=== PATIENT | male | born 1965 | race Caucasian/White ===

== ENCOUNTER 2017-05-17 07:40 | Emergency (ER) | payer OTHER ==
[2017-05-17] MEDS ORDERED: KETOROLAC 30 MG/ML 1 ML VIAL IM STA (07:57)
[2017-05-17] MEDS ORDERED: DIPH,PERTUS(ACELL)TETVAC-LF 0.5 ML VIAL IM ONE (07:59)
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
[2017-05-17 08:32] VITALS: BP 128/90; PULSE 90; RESP 18; TEMP 98
== END 2017-05-17 08:35 | disposition home or self-care (01) ==
LOC: EC 07:40
DX: T24.301A Burn of third degree of unspecified site of right lower limb, except ankle and foot, initial encounter (principal); F17.200 Nicotine dependence, unspecified, uncomplicated; Z23 Encounter for immunization; Z91.09 Other allergy status, other than to drugs and biological substances; W29.2XXA Contact with other powered household machinery, initial encounter
CPT/HCPCS: 90471; 90715; 96372; 99283

== ENCOUNTER 2017-06-26 13:50 | Emergency (ER) | payer OTHER ==
[2017-06-26 13:56] VITALS: BP 133/78; PULSE 88; RESP 20; TEMP 98.1
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
== END 2017-06-26 15:36 | disposition home or self-care (01) ==
LOC: EC 13:50
DX: Z76.0 Encounter for issue of repeat prescription (principal); F17.200 Nicotine dependence, unspecified, uncomplicated; Z91.048 Other nonmedicinal substance allergy status; Z98.890 Other specified postprocedural states; Z79.899 Other long term (current) drug therapy
CPT/HCPCS: 99281

== ENCOUNTER 2017-12-14 17:33 | Emergency (ER) | payer OTHER ==
[2017-12-14 17:50] VITALS: RESP 18; TEMP 98.2
--- NOTE | 2017-12-14 19:45 | ED ---
Psych HPI - General Source: patient Mode of arrival: ambulatory <[place] - Last Filed: 12/14/17 19:42> <Seng Ghotra - Last Filed: 12/15/17 06:47> - General Chief Complaint: Psychiatric Symptoms Stated Complaint: Mental Health Unit Time Seen by Provider: 12/14/17 18:18 - History of Present Illness Initial Comments: 52 years old gentleman has a history of depression was on some depression medication he had some side effects from depression medications and he stopped taking him he felt depression medications were making her feel like his throat and around. He been depressed he thought about self-harm he said he is a Hoahaoism and he do not want to go to [facility] [place] by committing suicide. He has a terms of stressors he do not have a job he is unable to pay his child support is unable to pay his bills in all this stressors and aggravating his depression he drinks daily he said he was not quite [place], and she drinks area denies any medical complaints ([place]) - Related Data Home Medications Medication Instructions Recorded Confirmed oxyCODONE HCL/ACETAMINOPHEN 1 tab PO Q6HR PRN 06/26/17 12/14/17 [Percocet 10-325 mg] Allergies Allergy/AdvReac Type Severity Reaction Status Date / Time dog dander Allergy Intermediate Unknown Verified 12/14/17 18:18 Review of Systems ROS Other: All systems not noted in ROS Statement are negative. <[place] - Last Filed: 12/14/17 19:42> ROS Other: All systems not noted in ROS Statement are negative. <Seng Ghotra - Last Filed: 12/15/17 06:47> ROS Statement: Those systems with pertinent positive or pertinent negative responses have been documented in the HPI. Past Medical History Past Medical History: COPD, Hyperlipidemia, Hypertension, Osteoarthritis (OA) Additional Past Medical History / Comment(s): cellulitis - Rt knee, recent chest pain. By left heart catheterization that was negative for coronary artery disease, abdominal pain possible gastritis possible pancreatitis, chronic alcohol use and dependence, chronic tobacco use and dependence, COPD, History of Any Multi-Drug Resistant Organisms: None Reported Past Surgical History: Orthopedic Surgery Additional Past Surgical History / Comment(s): re-attach thumb, right knee incision and drainage of a staph infection. Past Anesthesia/Blood Transfusion Reactions: No Reported Reaction Past Psychological History: Depression Smoking Status: Current every day smoker Past Alcohol Use History: Daily, Heavy Past Drug Use History: None Reported - Past Family History Mother Family Medical History: Rheumatoid Arthritis (RA) Father Family Medical History: Unable to Obtain Brother(s) Family Medical History: No Reported History Sister(s) Family Medical History: No Reported History Son(s) Family Medical History: No Reported History Daughter(s) Family Medical History: No Reported History <SergioRoosevelt - Last Filed: 12/14/17 19:42> General Exam Limitations: no limitations <[place] - Last Filed: 12/14/17 19:42> <Seng Ghotra - Last Filed: 12/15/17 06:47> - General Exam Comments Initial Comments: General: The patient is awake and alert, in no distress, and does not appear acutely ill. Skin: Skin is warm and dry and no rashes or lesions are noted. Eye: Pupils are equal, round and reactive to light, extra-ocular movements are intact; there is normal conjunctiva bilaterally. Ears, nose, mouth and throat: There are moist mucous membranes and no oral lesions. Neck: The neck is supple, there is no tenderness or JVD. Cardiovascular: There is a regular rate and rhythm. No murmur, rub or gallop is appreciated. Respiratory: To auscultation bilateral, no wheezing no rhonchi no distress respiratory mcneil noticed Gastrointestinal: Soft, non-distended, non-tender abdomen without masses or organomegaly noted. There is no rebound or guarding present. Bowel sounds are unremarkable. Back: There is no tenderness to palpation in the midline. There is no obvious deformity. Musculoskeletal: Normal ROM, no tenderness, There is no pedal edema. There is no calf tenderness or swelling. No cords were appreciated. Neurological: CN II-XII intact, Cranial nerves III through XII are intact. There are no obvious motor or sensory deficits. Coordination appears grossly intact. Speech is normal. Psychiatric: Cooperative, intoxicated and depressed and admits to suicidal ideation stated he would not proceed with the plan because he is a Hoahaoism ([place]) Course <[place] - Last Filed: 12/14/17 19:42> <Seng Ghotra - Last Filed: 12/15/17 06:47> Vital Signs 12/14/17 12/15/17 12/15/17 17:46 00:26 01:53 Temperature 98.2 F Pulse Rate 100 81 81 Respiratory 18 18 18 Rate Blood Pressure 167/107 136/76 135/79 O2 Sat by Pulse 99 98 98 Oximetry 12/15/17 06:31 Temperature Pulse Rate 101 H Respiratory 18 Rate Blood Pressure 175/85 O2 Sat by Pulse 98 Oximetry His alcohol level is quite high he would take him several hours to be sober EPS be consulted at that point ([place]) Medical Decision Making <[place] - Last Filed: 12/14/17 19:42> <Seng Ghotra - Last Filed: 12/15/17 06:47> - Medical Decision Making 52-year-old male presenting with depression and alcohol intoxication. Patient was evaluated by previous physician, medically cleared. He was awaiting EPS evaluation. He was seen by EPS nurse, who was able to discuss case with on- call psychiatry, patient does not need for inpatient psychiatric care at this time. There is no suicidal or homicidal ideation. Patient is given resources in the emergency department. He does have outpatient follow-up. He will return with worsening or changing symptoms. (Seng Ghotra) - Lab Data Lab Results 12/15/17 Range/Units 01:53 Urine Opiates Screen Not Detected (NotDetected) Ur Oxycodone Screen Detected H (NotDetected) Urine Methadone Screen Not Detected (NotDetected) Ur Propoxyphene Screen Not Detected (NotDetected) Ur Barbiturates Screen Not Detected (NotDetected) U Tricyclic Antidepress Not Detected (NotDetected) Ur Phencyclidine Scrn Not Detected (NotDetected) Ur Amphetamines Screen Not Detected (NotDetected) U Methamphetamines Scrn Not Detected (NotDetected) U Benzodiazepines Scrn Not Detected (NotDetected) Urine Cocaine Screen Not Detected (NotDetected) U Marijuana (THC) Screen Not Detected (NotDetected) Disposition <[place] - Last Filed: 12/14/17 19:42> Is patient prescribed a controlled substance at d/c from ED?: No Time of Disposition: 06:47 <Seng Ghotra - Last Filed: 12/15/17 06:47> Clinical Impression: Depression, Acute alcohol intoxication Disposition: HOME SELF-CARE Condition: Good Referrals: Enmanuel Cobian DO [Primary Care Provider] - 1-2 days
[2017-12-15] MEDS ORDERED: LORazepam 1 MG TAB PO STA (00:04)
[2017-12-15 02:40] LABS: Amphetamine Screen,Urine Not Detected (NotDetected); Barbiturate Screen,Urine Not Detected (NotDetected); Benzodiazepines Screen,Urine Not Detected (NotDetected); Cocaine Screen,Urine Not Detected (NotDetected); Methadone Screen, Urine Not Detected (NotDetected); Opiate Screen,Urine Not Detected (NotDetected); Oxycodone Screen, Urine Detected (NotDetected); Phencyclidine Screen,Urine Not Detected (NotDetected); Tricyclic Antidepressant,Urine Not Detected (NotDetected); Urn Cannabinoid Scrn Not Detected (NotDetected)
[2017-12-15 06:31] VITALS: BP 175/85; PULSE 101
== END 2017-12-15 07:04 | disposition home or self-care (01) ==
LOC: EC 17:33
DX: F32.9 Major depressive disorder, single episode, unspecified (principal); F10.120 Alcohol abuse with intoxication, uncomplicated; F17.210 Nicotine dependence, cigarettes, uncomplicated; Z91.048 Other nonmedicinal substance allergy status
CPT/HCPCS: 80306; 82075; 99284

== ENCOUNTER 2019-10-15 15:49 | Emergency (ER) | payer OTHER ==
[2019-10-15 15:56] VITALS: TEMP 98
[2019-10-15 16:16] LABS: Basophils % (A) 0 %; Eosinophils # (A) 0.2 k/uL (0-0.7); Eosinophils % (A) 2 %; HCT 45.7 % (39.0-53.0); HGB 14.9 gm/dL (13.0-17.5); Lymphocytes # (A) 0.9 k/uL (1.0-4.8); Lymphocytes % (A) 9 %; MCH 29.3 pg (25.0-35.0); MCHC 32.7 g/dL (31.0-37.0); MCV 89.6 fL (80.0-100.0); Mean Platelet Volume 7.1; Monocytes # (A) 0.6 k/uL (0-1.0); Monocytes % (A) 6 %; Neutrophils # (A) 7.9 k/uL (1.3-7.7); Neutrophils % (A) 82 %; Platelet Count 244 k/uL (150-450); RBC 5.09 m/uL (4.30-5.90); RDW 12.7 % (11.5-15.5); WBC 9.7 k/uL (3.8-10.6)
[2019-10-15 16:25] LABS: African American GFR (CKD) >90 (>60 ml/min/1.73 sqM); Anion Gap 9 mmol/L; Blood Urea Nitrogen 11 mg/dL (9-20); Calcium 9.7 mg/dL (8.4-10.2); Carbon Dioxide 25 mmol/L (22-30); Chloride 102 mmol/L (98-107); Glucose 76 mg/dL (74-99); Non-African American GFR(CKD) >90 (>60 ml/min/1.73 sqM); Partial Thromboplastin Time 27.1 sec (22.0-30.0); Prothrombin Time 10.3 sec (9.0-12.0); Sodium 136 mmol/L (137-145)
[2019-10-15] MEDS ORDERED: LIDOCAINE 4% CREAM 5 GM TUBE TOPICAL ONE (16:28)
--- NOTE | 2019-10-15 16:29 | ED ---
General Adult HPI - General Chief complaint: GI Bleed Stated complaint: Rectal Bleeding Time Seen by Provider: 10/15/19 16:00 Source: patient Mode of arrival: ambulatory Limitations: no limitations - History of Present Illness Initial comments: Dictation was produced using [employer] dictation software. please excuse any grammatical, word or spelling errors. This patient was cared for during a federal and state declared state of emergency secondary to Covid 19 Chief Complaint: 54-year-old male with chief complaint of rectal pain. History of Present Illness: 54-year-old male he has been having rectal pain for the last 5 months. Patient seen a specialist in [place]. He has been prescribed multiple medications. Patient states he gets pain every so often when having a bowel movement. Specialist provided him with stool softeners and rectal cream. States that the rectal cream does not always help. Patient has any abdominal pain. No nausea vomiting. States that the pain is really bad. No radiation of symptoms. The ROS documented in this emergency department record has been reviewed and confirmed by me. Those systems with pertinent positive or negative responses have been documented in the HPI. All other systems are other negative and/or noncontributory. PHYSICAL EXAM: General Impression: Alert and oriented x3, not in acute distress HEENT: Normocephalic atraumatic, extra-ocular movements intact, pupils equal and reactive to light bilaterally, mucous membranes moist. Cardiovascular: Heart regular rate and rhythm Chest: Able to complete full sentences, no retractions, no tachypnea Abdomen: abdomen soft, non-tender, non-distended, no organomegaly Musculoskeletal: Pulses present and equal in all extremities, no peripheral edema Motor: no focal deficits noted Neurological: CN II-XII grossly intact, no focal motor or sensory deficits noted Skin: Intact with no visualized rashes Psych: Normal affect and mood Rectal exam: Significant tenderness to the posterior anus. Difficult to visualize any abnormalities. ED course: 54-year-old male with clinical presentation concerning for anal fissure. Signs upon arrival are within acceptable limits. Laboratory evaluation obtained. CBC unremarkable. Coag panel unremarkable. Metabolic panel is negative. Cervical blood is negative. Patient given topical lidocaine applied to his anus. Patient given prescription for topical lidocaine to apply to the anus when necessary pain. Given referral to local general surgeon for outpatient management of anal fissure. Patient told to sit in warm water and to get [id number] sitz baths. - Related Data Home Medications Medication Instructions Recorded Confirmed oxyCODONE HCL/ACETAMINOPHEN 1 tab PO Q6HR PRN 06/26/17 12/14/17 [Percocet 10-325 mg] Previous Rx's Medication Instructions Recorded Lidocaine 5% Oint [Xylocaine 5% 1 applic TOPICAL DAILY PRN #1 tube 10/15/19 Oint] Allergies Allergy/AdvReac Type Severity Reaction Status Date / Time dog dander Allergy Intermediate Unknown Verified 10/15/19 15:56 Review of Systems ROS Statement: Those systems with pertinent positive or pertinent negative responses have been documented in the HPI. ROS Other: All systems not noted in ROS Statement are negative. Past Medical History Past Medical History: COPD, Hyperlipidemia, Hypertension, Osteoarthritis (OA) Additional Past Medical History / Comment(s): cellulitis - Rt knee, recent chest pain. By left heart catheterization that was negative for coronary artery disease, abdominal pain possible gastritis possible pancreatitis, chronic alcohol use and dependence, chronic tobacco use and dependence, COPD, History of Any Multi-Drug Resistant Organisms: None Reported Past Surgical History: Orthopedic Surgery Additional Past Surgical History / Comment(s): re-attach thumb, right knee incision and drainage of a staph infection. Past Anesthesia/Blood Transfusion Reactions: No Reported Reaction Past Psychological History: Depression Smoking Status: Current every day smoker Past Alcohol Use History: Daily, Heavy Past Drug Use History: None Reported - Past Family History Mother Family Medical History: Rheumatoid Arthritis (RA) Father Family Medical History: Unable to Obtain Brother(s) Family Medical History: No Reported History Sister(s) Family Medical History: No Reported History Son(s) Family Medical History: No Reported History Daughter(s) Family Medical History: No Reported History General Exam Limitations: no limitations Course Vital Signs 10/15/19 15:53 Temperature 98.0 F Pulse Rate 85 Respiratory 20 Rate Blood Pressure 130/86 O2 Sat by Pulse 99 Oximetry Medical Decision Making - Lab Data Result diagrams: 10/15/19 16:06 10/15/19 16:06 Lab Results 10/15/19 10/15/19 10/15/19 Range/Units 16:06 16:06 16:06 WBC 9.7 (3.8-10.6) k/uL RBC 5.09 (4.30-5.90) m/uL Hgb 14.9 (13.0-17.5) gm/dL Hct 45.7 (39.0-53.0) % MCV 89.6 (80.0-100.0) fL MCH 29.3 (25.0-35.0) pg MCHC 32.7 (31.0-37.0) g/dL RDW 12.7 (11.5-15.5) % Plt Count 244 (150-450) k/uL Neutrophils % 82 % Lymphocytes % 9 % Monocytes % 6 % Eosinophils % 2 % Basophils % 0 % Neutrophils # 7.9 H (1.3-7.7) k/uL Lymphocytes # 0.9 L (1.0-4.8) k/uL Monocytes # 0.6 (0-1.0) k/uL Eosinophils # 0.2 (0-0.7) k/uL Basophils # 0.0 (0-0.2) k/uL PT 10.3 (9.0-12.0) sec INR 1.0 (<1.2) APTT 27.1 (22.0-30.0) sec Sodium 136 L (137-145) mmol/L Potassium 4.0 (3.5-5.1) mmol/L Chloride 102 (98-107) mmol/L Carbon Dioxide 25 (22-30) mmol/L Anion Gap 9 mmol/L BUN 11 (9-20) mg/dL Creatinine 0.77 (0.66-1.25) mg/dL Est GFR (CKD-EPI)AfAm >90 (>60 ml/min/1.73 sqM) Est GFR (CKD-EPI)NonAf >90 (>60 ml/min/1.73 sqM) Glucose 76 (74-99) mg/dL Calcium 9.7 (8.4-10.2) mg/dL Stool Occult Blood (Negative) 10/15/19 Range/Units 16:30 WBC (3.8-10.6) k/uL RBC (4.30-5.90) m/uL Hgb (13.0-17.5) gm/dL Hct (39.0-53.0) % MCV (80.0-100.0) fL MCH (25.0-35.0) pg MCHC (31.0-37.0) g/dL RDW (11.5-15.5) % Plt Count (150-450) k/uL Neutrophils % % Lymphocytes % % Monocytes % % Eosinophils % % Basophils % % Neutrophils # (1.3-7.7) k/uL Lymphocytes # (1.0-4.8) k/uL Monocytes # (0-1.0) k/uL Eosinophils # (0-0.7) k/uL Basophils # (0-0.2) k/uL PT (9.0-12.0) sec INR (<1.2) APTT (22.0-30.0) sec Sodium (137-145) mmol/L Potassium (3.5-5.1) mmol/L Chloride (98-107) mmol/L Carbon Dioxide (22-30) mmol/L Anion Gap mmol/L BUN (9-20) mg/dL Creatinine (0.66-1.25) mg/dL Est GFR (CKD-EPI)AfAm (>60 ml/min/1.73 sqM) Est GFR (CKD-EPI)NonAf (>60 ml/min/1.73 sqM) Glucose (74-99) mg/dL Calcium (8.4-10.2) mg/dL Stool Occult Blood Negative (Negative) Disposition Clinical Impression: Anal fissure Disposition: HOME SELF-CARE Condition: Good Instructions (If sedation given, give patient instructions): Anal Fissure (ED) Additional Instructions: Clinical presentation is consistent with anal fissure. Encouraged to sit in warm water with sitz baths. Given prescription for lidocaine that should only be used with severe rectal pain. Please follow-up with local general surgeon for outpatient management of anal fissure. Prescriptions: Lidocaine 5% Oint [Xylocaine 5% Oint] 1 applic TOPICAL DAILY PRN #1 tube PRN Reason: rectal pain Is patient prescribed a controlled substance at d/c from ED?: No Referrals: Du Johnson MD [STAFF PHYSICIAN] - 1-2 days Time of Disposition: 17:10
[2019-10-15 17:13] VITALS: BP 129/80; PULSE 82; RESP 18
== END 2019-10-15 17:27 | disposition home or self-care (01) ==
LOC: EC 15:49
DX: K60.2 Anal fissure, unspecified (principal); L23.81 Allergic contact dermatitis due to animal (cat) (dog) dander; Z72.0 Tobacco use
CPT/HCPCS: 36415; 80048; 82272; 85025; 85610; 85730; 93005; 99285

== ENCOUNTER → 2019-10-18 | Outpatient (CLI) | payer OTHER | END | disposition home or self-care (01) | LOC: LABWHC1 08:42 | PROVIDERS: ATTEND Internal Medicine | DX: Z53.9 Procedure and treatment not carried out, unspecified reason (principal) ==

== ENCOUNTER → 2019-10-18 | Outpatient (CLI) | payer OTHER | END | disposition home or self-care (01) | LOC: LABWHC1 08:43 | PROVIDERS: ATTEND Internal Medicine | DX: U07.1 COVID-19 (principal) | CPT/HCPCS: 87635 ==

== ENCOUNTER → 2019-10-21 | Day surgery (SDC) | payer OTHER ==
[2019-10-18 11:27] VITALS: BMI 26.7
[~2019-10-21] MED LIST: DEXAMETHASONE SOD PHOSPHATE 10 MG/ML 1 ML VIAL IV ONE; LIDOCAINE 1% (10MG/ML) FOR IV START INTRADERMA PRN; METOCLOPRAMIDE 5 MG/ML 2 ML VIAL IVP ONE; MIDAZOLAM 2 MG/2 ML VIAL IVP ONE; ONDANSETRON 4 MG/2 ML VIAL IVP ONE; PROMETHAZINE INJ 25 MG/ML 1 ML VIAL IVPB ONE; PROPOFOL 10 MG/ML 20 ML VIAL IV ONE; SCOPOLAMINE 1.5MG/72HR PATCH TRANSDERM ONE; diphenhydrAMINE 50 MG/ML 1 ML VIAL IVP ONE
[2019-10-21 09:47] VITALS: TEMP 97.6
[2019-10-21] MEDS: LACTATED RINGERS 1,000 ML IV SCH ×2 (09:53→11:57)
--- NOTE | 2019-10-21 11:10 | P.OP ---
Date of Procedure: 10/21/19 Preoperative Diagnosis: GI bleed Postoperative Diagnosis: Anal fissure. Internal and external hemorrhoids Procedure(s) Performed: Colonoscopy Anesthesia: MAC Surgeon: Du Johnson Pathology: none sent Condition: stable Disposition: PACU Description of Procedure: The patient's placed on the endoscopy table in the lateral position. He received IV sedation. Digital rectal exam was performed which revealed internal and external hemorrhoids. There is evidence of an anal fissure at the 12 o'clock position. The flexible colonoscope was then placed patient anus passed throughout the entire colon. The ileocecal valve sutures. The cecum, ascending and transverse colon appeared normal. In the descending and sigmoid colon there is mild diverticular changes. Scope was then brought back the rectum and this appeared normal. Scope withdrawn through the anus and internal and external hemorrhoids were noted. In the anal fissure was seen. Scope was withdrawn for patient.
--- NOTE | 2019-10-21 11:12 | P.GSHP ---
History of Present Illness H&P Date: 10/21/19 Chief Complaint: Anal pain, bleeding This a 51-year-old male has safe for colonoscopy. He's adequate anal pain and bleeding. Past Medical History Past Medical History: COPD, Hyperlipidemia, Hypertension, Osteoarthritis (OA) Additional Past Medical History / Comment(s): PT STATES NO MEDICAL PROBLEMS AT THIS TIME EXCEPT HE HAS AN ANAL FISSURE History of Any Multi-Drug Resistant Organisms: None Reported Past Surgical History: Heart Catheterization, Orthopedic Surgery Additional Past Surgical History / Comment(s): re-attach LT thumb, right knee incision and drainage of a staph infection. Past Anesthesia/Blood Transfusion Reactions: No Reported Reaction Smoking Status: Former smoker - Past Family History Mother Family Medical History: Rheumatoid Arthritis (RA) Father Family Medical History: Unable to Obtain Brother(s) Family Medical History: No Reported History Sister(s) Family Medical History: No Reported History Son(s) Family Medical History: No Reported History Daughter(s) Family Medical History: No Reported History Medications and Allergies Home Medications Medication Instructions Recorded Confirmed Type No Known Home Medications 10/18/19 10/21/19 History Allergies Allergy/AdvReac Type Severity Reaction Status Date / Time dog dander Allergy Intermediate nose runs Verified 10/21/19 09:38 and chest feels full Surgical - Exam Vital Signs Temp Pulse BP Pulse Ox 97.6 F 74 135/89 100 10/21/19 09:46 10/21/19 09:46 10/21/19 09:46 10/21/19 09:46 - General well developed, well nourished, no distress - Eyes PERRL - ENT normal pinna - Neck no masses - Respiratory normal expansion - Cardiovascular Rhythm: regular - Abdomen Abdomen: soft, non tender Assessment and Plan Assessment: Anal pain, bleeding. We'll perform colonoscopy.
[2019-10-21 14:18] VITALS: BP 163/71; PULSE 70; RESP 17
[2019-10-21 14:48] LABS: Basophils % (A) 0 %; Eosinophils # (A) 0.2 k/uL (0-0.7); Eosinophils % (A) 2 %; HCT 43.5 % (39.0-53.0); HGB 14.7 gm/dL (13.0-17.5); Lymphocytes # (A) 0.5 k/uL (1.0-4.8); Lymphocytes % (A) 5 %; MCH 30.1 pg (25.0-35.0); MCHC 33.7 g/dL (31.0-37.0); MCV 89.1 fL (80.0-100.0); Mean Platelet Volume 7.2; Monocytes # (A) 0.1 k/uL (0-1.0); Monocytes % (A) 1 %; Neutrophils % (A) 91 %; Platelet Count 280 k/uL (150-450); RBC 4.88 m/uL (4.30-5.90); RDW 12.7 % (11.5-15.5); WBC 9.9 k/uL (3.8-10.6)
[2019-10-21 14:57] LABS: ALT 21 U/L (4-49); AST 24 U/L (17-59); African American GFR (CKD) >90 (>60 ml/min/1.73 sqM); Albumin 4.2 g/dL (3.5-5.0); Alkaline Phosphatase 83 U/L (38-126); Anion Gap 9 mmol/L; Blood Urea Nitrogen 8 mg/dL (9-20); Calcium 9.9 mg/dL (8.4-10.2); Carbon Dioxide 24 mmol/L (22-30); Chloride 104 mmol/L (98-107); Glucose 104 mg/dL (74-99); Non-African American GFR(CKD) >90 (>60 ml/min/1.73 sqM); Potassium 3.7 mmol/L (3.5-5.1); Sodium 137 mmol/L (137-145); Total Bilirubin 0.5 mg/dL (0.2-1.3)
--- NOTE | 2019-10-21 15:06 | P.CRDCN ---
<Simona Wyman - Last Filed: 10/21/19 15:10> History of Present Illness History of present illness: HISTORY OF PRESENTING ILLNESS This is a pleasant 54-year-old male past medical history significant for former nicotine dependence, history of alcohol abuse and COPD, although he takes no daily medications. He denies prior history of coronary artery disease and does not follow in the office with a paperhanger. He did undergo a cardiac catheterization in [address] Olivas secondary to chest pain that was unremarkable with no evidence of obstructive disease. He presented to the hospital today for an outpatient colonoscopy. Since arriving in recovery he has been experiencing persistent left upper quadrant, left lower chest pain, nausea and vomiting. When asked to point to his pain he points to the left upper quadrant and sternal region. He has received zofran, scopalmine and reglan without relief of his nausea. EKG performed revealed sinus mechanism with no acute ST or T-wave changes. Blood pressure 163/71 heart rate 70 afebrile and maintaining oxygen saturation on room air. REVIEW OF SYSTEMS At the time of my exam: CONSTITUTIONAL: Denies fever or chills. CARDIOVASCULAR: Denies chest pain, shortness of breath, orthopnea, PND or palpitations. RESPIRATORY: Denies cough. GASTROINTESTINAL: Complains of abdominal pain, nausea and vomiting. Denies diarrhea or constipation. MUSCULOSKELETAL: Denies myalgias. NEUROLOGIC: Denies numbness, tingling or weakness. ENDOCRINE: Denies fatigue, weight change, polydipsia or polyurina. GENITOURINARY: Denies burning, hematuria or urgency with micturation. HEMATOLOGIC: Denies history of anemia or bleeding. PHYSICAL EXAMINATION CONSTITUTIONAL: No apparent distress. HEENT: Head is normocephalic. Pupils are equal, round. Sclerae anicteric. Mucous membranes of the mouth are moist. No JVD. No carotid bruit. CHEST EXAMINATION: Lungs are clear to auscultation. No chest wall tenderness is noted on palpation or with deep breathing. HEART EXAMINATION: Regular rate and rhythm. S1, S2 heard. No murmurs, gallops or rub. ABDOMEN: Soft, tender left upper quadrant. EXTREMITIES: 2+ peripheral pulses, no lower extremity edema and no calf tenderness. NEUROLOGIC EXAMINATION: Patient is awake, alert and oriented x3. ASSESSMENT Abdominal pain, nausea and vomiting. s/p colonoscopy with anal fissure and hemorrhoids noted. PLAN EKG normal sinus mechanism, symptoms not suggestive of unstable angina. Obtain abdominal xray. Troponin, CBC and BMP ordered. Consider further imaging of the abdomen with a CT to look for possible perforation. Discussed with surgical ADVANCED PRACTICE NURSE for further testing. Assessment in-details and plan of care discussed with Dr. Valencia. Thank you kindly for this consultation. Nurse Practitioner note has been reviewed, I agree with a documented findings and plan of care. Patient was seen and examined. Past Medical History Past Medical History: COPD, Hyperlipidemia, Hypertension, Osteoarthritis (OA) Additional Past Medical History / Comment(s): PT STATES NO MEDICAL PROBLEMS AT THIS TIME EXCEPT HE HAS AN ANAL FISSURE History of Any Multi-Drug Resistant Organisms: None Reported Past Surgical History: Heart Catheterization, Orthopedic Surgery Additional Past Surgical History / Comment(s): re-attach LT thumb, right knee incision and drainage of a staph infection. Past Anesthesia/Blood Transfusion Reactions: No Reported Reaction Smoking Status: Former smoker - Past Family History Mother Family Medical History: Rheumatoid Arthritis (RA) Father Family Medical History: Unable to Obtain Brother(s) Family Medical History: No Reported History Sister(s) Family Medical History: No Reported History Son(s) Family Medical History: No Reported History Daughter(s) Family Medical History: No Reported History Medications and Allergies Home Medications Medication Instructions Recorded Confirmed Type Hydrocortisone/Pramoxine 0 applic RECTAL BID #30 bottle 10/21/19 Rx [Proctofoam-Hc 1%-1% Foam] Allergies Allergy/AdvReac Type Severity Reaction Status Date / Time dog dander Allergy Intermediate nose runs Verified 10/21/19 09:38 and chest feels full Physical Exam Vitals: Vital Signs Temp Pulse Resp BP Pulse Ox 10/21/19 14:16 70 17 163/71 99 10/21/19 12:29 77 16 194/95 10/21/19 12:00 77 14 154/78 100 10/21/19 11:34 82 17 172/90 98 10/21/19 11:01 88 17 141/90 98 10/21/19 09:46 97.6 F 74 135/89 100 Intake and Output 10/20/19 10/21/19 10/21/19 22:59 06:59 14:59 Intake Total 1999 Balance 1999 Intake: IV 1999 Other: Weight 99.7 kg Results 10/21/19 14:38 10/21/19 14:38 CBC 10/21/19 Range/Units 14:38 WBC 9.9 (3.8-10.6) k/uL RBC 4.88 (4.30-5.90) m/uL Hgb 14.7 (13.0-17.5) gm/dL Hct 43.5 (39.0-53.0) % Plt Count 280 (150-450) k/uL Current Medications Generic Name Dose Route Start Last Admin Trade Name Prabha PRN Reason Stop Dose Admin Lactated Ringer's 1,000 mls @ 20 mls/hr 10/21/19 06:34 10/21/19 11:57 Lactated Ringers IV 1,000 mls .Q24H BIRGIT Administration Lidocaine HCl 0.1 ml 10/21/19 06:34 10/21/19 09:52 .Xylocaine 1% Inj (10mg/Ml) For Iv Start INTRADERMA 0.1 ml PER PROTOCOL PRN Administration IV Start Intake and Output 10/20/19 10/21/19 10/21/19 22:59 06:59 14:59 Intake Total 1999 Balance 1999 Intake: IV 1999 Other: Weight 99.7 kg Patient Weight 10/22/19 06:59 Weight 99.7 kg 10/21/19 14:38 <Anette Valencia - Last Filed: 10/21/19 16:58> History of Present Illness History of present illness: Chest x-ray and abdominal x-ray shows significant gas in the stomach ad also small bowels. Apparently patient received and subsequently, he felt better and wanted to be discharge. Patient was discharged home in stable condition.Discussed with attending nurse. Physical Exam Vitals: Vital Signs Temp Pulse Resp BP Pulse Ox 10/21/19 14:16 70 17 163/71 99 10/21/19 12:29 77 16 194/95 10/21/19 12:00 77 14 154/78 100 10/21/19 11:34 82 17 172/90 98 10/21/19 11:01 88 17 141/90 98 10/21/19 09:46 97.6 F 74 135/89 100 Intake and Output 10/21/19 10/21/19 10/21/19 06:59 14:59 22:59 Intake Total 1999 Balance 1999 Intake: IV 1999 Other: Weight 99.7 kg Results 10/21/19 14:38 10/21/19 14:38 Cardiac Enzymes 10/21/19 10/21/19 Range/Units 14:38 14:38 AST 24 (17-59) U/L Troponin I <0.012 (0.000-0.034) ng/mL CBC 10/21/19 Range/Units 14:38 WBC 9.9 (3.8-10.6) k/uL RBC 4.88 (4.30-5.90) m/uL Hgb 14.7 (13.0-17.5) gm/dL Hct 43.5 (39.0-53.0) % Plt Count 280 (150-450) k/uL Comprehensive Metabolic Panel 10/21/19 Range/Units 14:38 Sodium 137 (137-145) mmol/L Potassium 3.7 (3.5-5.1) mmol/L Chloride 104 (98-107) mmol/L Carbon Dioxide 24 (22-30) mmol/L BUN 8 L (9-20) mg/dL Creatinine 0.64 L (0.66-1.25) mg/dL Glucose 104 H (74-99) mg/dL Calcium 9.9 (8.4-10.2) mg/dL AST 24 (17-59) U/L ALT 21 (4-49) U/L Alkaline Phosphatase 83 (38-126) U/L Total Protein 7.0 (6.3-8.2) g/dL Albumin 4.2 (3.5-5.0) g/dL Current Medications Generic Name Dose Route Start Last Admin Trade Name Freq PRN Reason Stop Dose Admin Lactated Ringer's 1,000 mls @ 20 mls/hr 10/21/19 06:34 10/21/19 11:57 Lactated Ringers IV 1,000 mls .Q24H BIRGIT Administration Lidocaine HCl 0.1 ml 10/21/19 06:34 10/21/19 09:52 .Xylocaine 1% Inj (10mg/Ml) For Iv Start INTRADERMA 0.1 ml PER PROTOCOL PRN Administration IV Start Intake and Output 10/21/19 10/21/19 10/21/19 06:59 14:59 22:59 Intake Total 1999 Balance 1999 Intake: IV 1999 Other: Weight 99.7 kg Patient Weight 10/22/19 06:59 Weight 99.7 kg 10/21/19 14:38 10/21/19 14:38
--- NOTE | 2019-10-21 15:07 | XR ---
EXAMINATION TYPE: XR chest 1V portable DATE OF EXAM: 10/21/2019 HISTORY: Shortness of breath. COMPARISON: 05/17/2016 TECHNIQUE: Single view of the chest is submitted. FINDINGS: Demonstrated are scattered senescent parenchymal change. There is no evidence for focal infiltrate. The heart is stable. Hilar and mediastinal structures are within normal limits. Degenerative changes are seen of the dorsal spine. IMPRESSION: 1. Chronic changes without evidence for acute pulmonary disease.
--- NOTE | 2019-10-21 15:09 | XR ---
EXAMINATION TYPE: XR abdomen 1V DATE OF EXAM: 10/21/2019 COMPARISON: NONE HISTORY: Pain TECHNIQUE: Single supine KUB image of the abdomen is obtained FINDINGS: Gaseous distention of small and large bowel in a patient who is status post endoscopy. No convincing evidence for pneumoperitoneum. No unusual calcifications. The lung bases are clear. The osseous structures are intact. IMPRESSION: 1. Gaseous distention of small and large bowel in a patient who is status post endoscopy.
== END ==
LOC: ORWHC2ENDO 08:37
PROVIDERS: ATTEND Surgery
DX: K60.2 Anal fissure, unspecified (principal); K64.4 Residual hemorrhoidal skin tags; K64.8 Other hemorrhoids; K57.30 Diverticulosis of large intestine without perforation or abscess without bleeding; R07.89 Other chest pain; I10 Essential (primary) hypertension; E78.5 Hyperlipidemia, unspecified; J44.9 Chronic obstructive pulmonary disease, unspecified; Z91.09 Other allergy status, other than to drugs and biological substances; Z87.891 Personal history of nicotine dependence; M19.90 Unspecified osteoarthritis, unspecified site; Z82.69 Family history of other diseases of the musculoskeletal system and connective tissue; Z98.890 Other specified postprocedural states
CPT/HCPCS: 93005; 80053; 84484; 85025; 71045; 74018; 45378; J2250; J1200; J1100; J2550; J2765; J2405; J2704

== ENCOUNTER 2020-01-29 07:14 | Day surgery (SDC) | payer OTHER ==
[2020-01-22 16:09] VITALS: BMI 27.5
[~2020-01-29 07:14] MED LIST changes: +ACETAMINOPHEN TAB 500 MG TAB PO ONE; +HEPARIN SODIUM,PORCINE 5,000 UNIT/ML 1 ML VIAL SQ ONE; +HYDROmorphone 0.5 MG/0.5 ML SYRINGE IVP PRN; +LACTATED RINGERS 1,000 ML IV SCH; -LIDOCAINE 1% (10MG/ML) FOR IV START INTRADERMA PRN; -METOCLOPRAMIDE 5 MG/ML 2 ML VIAL IVP ONE; +MIDAZOLAM 2 MG/2 ML VIAL IV PRN; -MIDAZOLAM 2 MG/2 ML VIAL IVP ONE; +NA PHOS,M-B/NA PHOS,DI-BA 133 ML ENEMA RECTAL ONE; -PROMETHAZINE INJ 25 MG/ML 1 ML VIAL IVPB ONE; -PROPOFOL 10 MG/ML 20 ML VIAL IV ONE; +Pre Op ABX Message 1 EACH MISC MISCELLANE ONE; -diphenhydrAMINE 50 MG/ML 1 ML VIAL IVP ONE
[2020-01-29] MEDS ORDERED: ONDANSETRON 4 MG/2 ML VIAL ONE (07:43)
[2020-01-29] MEDS ORDERED: ACETAMINOPHEN TAB 500 MG TAB ONE (07:43)
[2020-01-29] MEDS ORDERED: HEPARIN SODIUM,PORCINE 5,000 UNIT/ML 1 ML VIAL ONE (07:45)
--- NOTE | 2020-01-29 08:29 | P.GSHP ---
History of Present Illness H&P Date: 01/29/20 Chief Complaint: Hemorrhoids This a 54-year-old male presents today for hemorrhoidectomy. Patient has had issues with rectal pain and bleeding. Patient is known internal and external hemorrhoids Past Medical History Past Medical History: Hyperlipidemia, Hypertension, Osteoarthritis (OA) Additional Past Medical History / Comment(s): cellulitis - Rt knee, recent chest pain. left heart catheterization that was negative for coronary artery disease, abdominal pain possible gastritis possible pancreatitis, chronic alcohol use and dependence, chronic tobacco use and dependence History of Any Multi-Drug Resistant Organisms: MRSA Date of last positivie culture/infection: 2004 MDRO Source:: lt foot Past Surgical History: Orthopedic Surgery Additional Past Surgical History / Comment(s): re-attach thumb, right knee incision and drainage of a staph infection. skin grafts rt knee Past Anesthesia/Blood Transfusion Reactions: No Reported Reaction Smoking Status: Former smoker - Past Family History Mother Family Medical History: Rheumatoid Arthritis (RA) Father Family Medical History: Unable to Obtain Brother(s) Family Medical History: No Reported History Sister(s) Family Medical History: No Reported History Son(s) Family Medical History: No Reported History Daughter(s) Family Medical History: No Reported History Medications and Allergies Home Medications Medication Instructions Recorded Confirmed Type Hydrocortisone/Pramoxine 0 applic RECTAL BID #30 bottle 10/21/19 01/22/20 Rx [Proctofoam-Hc 1%-1% Foam] Ibuprofen [Motrin] 800 mg PO DAILY PRN 01/22/20 01/22/20 History Allergies Allergy/AdvReac Type Severity Reaction Status Date / Time dog dander Allergy Intermediate nose runs Verified 01/29/20 07:37 and chest feels full Surgical - Exam Vital Signs Temp Pulse Resp BP Pulse Ox 97.2 F L 64 16 119/70 98 01/29/20 07:36 01/29/20 07:36 01/29/20 07:36 01/29/20 07:36 01/29/20 07:36 - General well developed, well nourished, no distress, moderate distress - Eyes PERRL - ENT normal pinna - Neck no masses - Respiratory normal expansion - Cardiovascular Rhythm: regular - Abdomen Abdomen: soft, non tender Assessment and Plan Assessment: Internal and external hemorrhoids. We'll perform hemorrhoidectomy
[2020-01-29] MEDS ORDERED: fentaNYL (PF) 50 MCG/ML 2 ML AMP ONE ×2 (08:43)
[2020-01-29] MEDS ORDERED: MIDAZOLAM 2 MG/2 ML VIAL ONE ×2 (08:43)
[2020-01-29] MEDS ORDERED: LIDOCAINE 1% INJ 10MG/ML (20 ML MDV) ONE ×2 (08:43)
[2020-01-29] MEDS ORDERED: PROPOFOL 10 MG/ML 20 ML VIAL IV ONE ×2 (08:43)
[2020-01-29] MEDS ORDERED: SODIUM CHLORIDE 0.9% 100 ML with ceFAZolin 2,000 MG IV ONE ×2 (09:00)
[2020-01-29] MEDS ORDERED: LIDOCAINE 1%-EPI 1:100,000 20 ML VIAL SQ ONE (09:12)
--- NOTE | 2020-01-29 09:26 | P.OP ---
Date of Procedure: 01/29/20 Preoperative Diagnosis: Internal and external hemorrhoids Postoperative Diagnosis: Internal and external hemorrhoids Procedure(s) Performed: Internal and and external Hemorrhoidectomy Anesthesia: MAC Surgeon: Du Johnson Pathology: other (Internal and external hemorrhoids) Condition: stable Disposition: PACU Description of Procedure: The patient's placed on the operative table in the prone position. He received IV sedation. His anus was prepped and draped usual sterile fashion. The anus was examined. There is evidence of intravesical hemorrhage. The anal trochars placed anus. The left lateral hemorrhoidal column was grasped with Allis clamp and using Harmonic scissors the hemorrhoid was performed. Next the right anterior column was excised in identical fashion. There was a smaller right posterior column which was excised in identical fashion. No bleeding was seen. Gelfoam was placed patient anus. Patient top she will was sent to recovery room in stable condition.
[2020-01-29 09:33] VITALS: TEMP 98.1
[2020-01-29 10:11] VITALS: RESP 20
[2020-01-29 10:18] VITALS: BP 136/82; PULSE 70
== END 2020-01-29 10:40 | disposition home or self-care (01) ==
LOC: OR 07:14
PROVIDERS: ATTEND Surgery
DX: K64.8 Other hemorrhoids (principal); K64.4 Residual hemorrhoidal skin tags; E78.5 Hyperlipidemia, unspecified; I10 Essential (primary) hypertension; M19.90 Unspecified osteoarthritis, unspecified site; R10.9 Unspecified abdominal pain; Z86.14 Personal history of Methicillin resistant Staphylococcus aureus infection; F10.11 Alcohol abuse, in remission; Z82.61 Family history of arthritis; Z98.890 Other specified postprocedural states; Z79.891 Long term (current) use of opiate analgesic; Z91.048 Other nonmedicinal substance allergy status; F17.200 Nicotine dependence, unspecified, uncomplicated
CPT/HCPCS: 88304; 46260; J2250; J1644; J1100; J2405; J0690; J2001; J3010; J2704

== ENCOUNTER 2023-01-14 11:26 | Emergency (ER) | payer OTHER ==
[2023-01-14 11:34] VITALS: RESP 18
[2023-01-14] MEDS ORDERED: methylPREDNISolone SOD SUCCI 125 MG/2 ML VIAL IM ONE (11:55)
--- NOTE | 2023-01-14 11:58 | ED ---
General Adult HPI - General Chief complaint: Skin/Abscess/Foreign Body Stated complaint: Poison Gayle Source: patient Mode of arrival: ambulatory Limitations: no limitations - History of Present Illness Initial comments: 57-year-old male presenting to the ED with a chief complaint of rash. Patient states 5 days ago was working outside when he came into contact with poison gayle. States in the next 1-2 days started to develop a rash over his bilateral upper and lower extremities and the sun exposed regions. Has been using, Calmamine cream without relief. No other complaints at this time. - Related Data Home Medications Medication Instructions Recorded Confirmed Ibuprofen [Motrin] 800 mg PO DAILY PRN 01/22/20 01/22/20 Previous Rx's Medication Instructions Recorded Hydrocortisone/Pramoxine 0 applic RECTAL BID #30 bottle 10/21/19 [Proctofoam-Hc 1%-1% Foam] Docusate [Colace] 100 mg PO BID #20 capsule 01/29/20 HYDROcodone/APAP 5-325MG [[place] 1 tab PO Q6HR PRN #10 tab 01/29/20 5-325] Betamethasone Dipropionate 1 applic TOPICAL BID #15 gm 01/14/23 [Betamethasone Dipropionate 0.05%] diphenhydrAMINE [Benadryl] 50 mg PO QID PRN #30 capsule 01/14/23 Allergies Allergy/AdvReac Type Severity Reaction Status Date / Time dog dander Allergy Intermediate nose runs Verified 01/14/23 11:34 and chest feels full Review of Systems ROS Statement: Those systems with pertinent positive or pertinent negative responses have been documented in the HPI. ROS Other: All systems not noted in ROS Statement are negative. Past Medical History Past Medical History: Hyperlipidemia, Hypertension, Osteoarthritis (OA) Additional Past Medical History / Comment(s): cellulitis - Rt knee, recent chest pain. left heart catheterization that was negative for coronary artery disease, abdominal pain possible gastritis possible pancreatitis, chronic alcohol use and dependence, chronic tobacco use and dependence History of Any Multi-Drug Resistant Organisms: MRSA Date of last positivie culture/infection: 2004 MDRO Source:: lt foot Past Surgical History: Orthopedic Surgery Additional Past Surgical History / Comment(s): re-attach thumb, right knee incision and drainage of a staph infection. skin grafts rt knee Past Anesthesia/Blood Transfusion Reactions: No Reported Reaction Past Psychological History: Depression Smoking Status: Former smoker Past Alcohol Use History: None Reported Past Drug Use History: Marijuana - Past Family History Mother Family Medical History: Rheumatoid Arthritis (RA) Father Family Medical History: Unable to Obtain Brother(s) Family Medical History: No Reported History Sister(s) Family Medical History: No Reported History Son(s) Family Medical History: No Reported History Daughter(s) Family Medical History: No Reported History General Exam Limitations: no limitations Head exam: Present: atraumatic, normocephalic Eye exam: Present: normal appearance Respiratory exam: Present: normal lung sounds bilaterally Cardiovascular Exam: Present: regular rate, normal rhythm Neurological exam: Present: alert, oriented X3 Psychiatric exam: Present: normal affect, normal mood Skin exam: Present: warm, dry, other (Maculopapular/vesicular rash on the bilateral forearms and bilateral lower legs and a linear distribution. Some vesicles were unroofed. No surrounding warmth, erythema, edema, tenderness to palpation.) Course Vital Signs 01/14/23 11:28 Temperature 97.5 F L Pulse Rate 78 Respiratory 18 Rate Blood Pressure 140/95 O2 Sat by Pulse 97 Oximetry Medical Decision Making - Medical Decision Making Was pt. sent in by a medical professional or institution (, PA, REVENUE STAMPER, urgent care, hospital, or residential...) When possible be specific @ -No Did you speak to anyone other than the patient for history (EMS, parent, family, police, friend...)? What history was obtained from this source @ -No Did you review nursing and triage notes (agree or disagree)? Why? @ -I reviewed and agree with nursing and triage notes Were old charts reviewed (outside hosp., previous admission, EMS record, old EKG, old radiological studies, urgent care reports/EKG's, residential records)? Report findings @ -No old charts were reviewed Differential Diagnosis (chest pain, altered mental status, abdominal pain women, abdominal pain men, vaginal bleeding, weakness, fever, dyspnea, syncope, headache, dizziness, GI bleed, back pain, seizure, CVA, palpatations, mental health, musculoskeletal)? @ -SJS, TEN. Erythema multiforme, atopic dermatitis, delayed hypersensitivity reaction. This is not meant to be an all-inclusive list. EKG interpreted by me (3pts min.). @ -None X-rays interpreted by me (1pt min.). @ -None done CT interpreted by me (1pt min.). @ -None done U/S interpreted by me (1pt. min.). @ -None done What testing was considered but not performed or refused? (CT, X-rays, U/S, labs)? Why? @ -None What meds were considered but not given or refused? Why? @ -None Did you discuss the management of the patient with other professionals (professionals i.e. , PA, REVENUE STAMPER, lab, RT, psych nurse, psych social worker, mannequin mold maker, teacher, certified juvenile probation officer, hospice case manager)? Give summary @ -No Was smoking cessation discussed for >3mins.? @ -No Was critical care preformed (if so, how long)? @ -No Were there social determinants of health that impacted care today? How? (Homelessness, low income, unemployed, alcoholism, drug addiction, transportation, low edu. Level, literacy, decrease access to med. care, intermediate, rehab)? @ -No Was there de-escalation of care discussed even if they declined (Discuss DNR or withdrawal of care, Hospice)? DNR status @ -No What co-morbidities impacted this encounter? (DM, HTN, Smoking, COPD, CAD, Cancer, CVA, ARF, Chemo, Hep., AIDS, mental health diagnosis, sleep apnea, morbid obesity)? @ -None Was patient admitted / discharged? Hospital course, mention meds given and route, prescriptions, significant lab abnormalities, going to OR and other pertinent info. @ -Discharge. Rash appears consistent with poison gayle/poison oak. No evidence of infection at this time. Patient provided injection of Solu-Medrol here and will be provided prescription for topical steroids and Benadryl. Patient discharged home in stable condition. Discussed return precautions patient verbalizes agreement. Undiagnosed new problem with uncertain prognosis? @ -No Drug Therapy requiring intensive monitoring for toxicity (Heparin, Nitro, Insulin, Cardizem)? @ -No Were any procedures done? @ -No Diagnosis/symptom? @ -Poison Gayle Acute, or Chronic, or Acute on Chronic? @ -Acute Uncomplicated (without systemic symptoms) or Complicated (systemic symptoms)? @ -Uncomplicated Side effects of treatment? @ -No Exacerbation, Progression, or Severe Exacerbation? @ -No Poses a threat to life or bodily function? How? (Chest pain, [place], [place], pneumonia, PE, COPD, DKA, ARF, appy, cholecystitis, CVA, Diverticulitis, Homicidal, Suicidal, threat to staff... and all critical care pts) @ -No Disposition Clinical Impression: Poison gayle dermatitis Disposition: HOME SELF-CARE Instructions (If sedation given, give patient instructions): Poison Gayle (ED) Additional Instructions: Please return to the Emergency Department if symptoms worsen or any other co ncerns. Prescriptions: diphenhydrAMINE [Benadryl] 50 mg PO QID PRN #30 capsule PRN Reason: Rash Betamethasone Dipropionate [Betamethasone Dipropionate 0.05%] 1 applic TOPICAL BID #15 gm Is patient prescribed a controlled substance at d/c from ED?: No Referrals: None,Stated [Primary Care Provider] - 1-2 days Time of Disposition: 12:15
[2023-01-14 12:58] VITALS: BP 135/72; PULSE 74; TEMP 98
== END 2023-01-14 12:58 | disposition home or self-care (01) ==
LOC: EC 11:26
DX: L23.7 Allergic contact dermatitis due to plants, except food (principal); I10 Essential (primary) hypertension; F12.90 Cannabis use, unspecified, uncomplicated; Z91.09 Other allergy status, other than to drugs and biological substances; Z87.891 Personal history of nicotine dependence
CPT/HCPCS: 99282; 96372; J2930

== ENCOUNTER 2024-05-13 10:34 | Emergency (ER) | payer OTHER ==
[2024-05-13 10:40] VITALS: RESP 18; TEMP 98
[2024-05-13] MEDS: KETOROLAC 15 MG/ML 1 ML VIAL IM STA (11:05)
--- NOTE | 2024-05-13 11:09 | ED ---
Lower Extremity Injury HPI - General Chief Complaint: Extremity Injury, Lower Stated Complaint: Fall, right knee injury Time Seen by Provider: 05/13/24 10:43 Source: patient, RN notes reviewed Mode of arrival: wheelchair Limitations: physical limitation - History of Present Illness Initial Comments: 59 year old male presents to the emergency department with chief complaint of right knee pain. He states that he fell over a pipe, landing on his right knee two days ago. Today he reports severe right knee pain and an inability to flex knee. He reports significant swelling, pain with weight bearing that sends shooting pain to lateral/posterior leg traveling cephalad. He endorses a history of [place] to anterolateral lower extremety, and cellulitis to right knee. He denies fever, shortness of breath, and chest pain. He denies radiculopathy symptoms, back pain, and saddle anesthesias. Denies other complaints. - Related Data Home Medications Medication Instructions Recorded Confirmed Ibuprofen [Motrin] 800 mg PO DAILY PRN 01/22/20 01/22/20 Previous Rx's Medication Instructions Recorded Hydrocortisone/Pramoxine 0 applic RECTAL BID #30 bottle 10/21/19 [Proctofoam-Hc 1%-1% Foam] Docusate [Colace] 100 mg PO BID #20 capsule 01/29/20 HYDROcodone/APAP 5-325MG [[place] 1 tab PO Q6HR PRN #10 tab 01/29/20 5-325] Betamethasone Dipropionate 1 applic TOPICAL BID #15 gm 01/14/23 [Betamethasone Dipropionate 0.05%] diphenhydrAMINE [Benadryl] 50 mg PO QID PRN #30 capsule 01/14/23 Allergies Allergy/AdvReac Type Severity Reaction Status Date / Time No Known Allergies Allergy Verified 05/13/24 10:40 Review of Systems ROS Statement: Those systems with pertinent positive or pertinent negative responses have been documented in the HPI. ROS Other: All systems not noted in ROS Statement are negative. Past Medical History Past Medical History: Hyperlipidemia, Hypertension, Osteoarthritis (OA) Additional Past Medical History / Comment(s): cellulitis - Rt knee, recent chest pain. left heart catheterization that was negative for coronary artery disease, abdominal pain possible gastritis possible pancreatitis, chronic alcohol use and dependence, chronic tobacco use and dependence History of Any Multi-Drug Resistant Organisms: MRSA Date of last positivie culture/infection: 2004 MDRO Source:: lt foot Past Surgical History: Orthopedic Surgery Additional Past Surgical History / Comment(s): re-attach thumb, right knee incision and drainage of a staph infection. skin grafts rt knee Past Anesthesia/Blood Transfusion Reactions: No Reported Reaction Past Psychological History: Depression Smoking Status: Current every day smoker Past Alcohol Use History: None Reported Past Drug Use History: Marijuana - Past Family History Mother Family Medical History: Rheumatoid Arthritis (RA) Father Family Medical History: Unable to Obtain Brother(s) Family Medical History: No Reported History Sister(s) Family Medical History: No Reported History Son(s) Family Medical History: No Reported History Daughter(s) Family Medical History: No Reported History General Exam Limitations: physical limitation General appearance: alert, in no apparent distress Head exam: Present: atraumatic, normocephalic, normal inspection Eye exam: Present: normal appearance, PERRL, EOMI. Absent: scleral icterus, conjunctival injection, periorbital swelling ENT exam: Present: normal exam, mucous membranes moist Neck exam: Present: normal inspection. Absent: tenderness, meningismus, lymphadenopathy Respiratory exam: Present: normal lung sounds bilaterally. Absent: respiratory distress, wheezes, rales, rhonchi, stridor Cardiovascular Exam: Present: regular rate, normal rhythm, normal heart sounds. Absent: systolic murmur, diastolic murmur, rubs, gallop, clicks GI/Abdominal exam: Present: soft, normal bowel sounds. Absent: distended, tenderness, guarding, rebound, rigid Extremities exam: Present: normal inspection, full ROM, normal capillary refill. Absent: tenderness, pedal edema, joint swelling, calf tenderness Right Knee exam: Present: tenderness, swelling, erythema, effusion, pain w/ pronation/supination Back exam: Present: normal inspection Neurological exam: Present: alert, oriented X3, CN II-XII intact Psychiatric exam: Present: normal affect, normal mood Skin exam: Present: warm, dry, intact, normal color. Absent: rash Course Vital Signs 05/13/24 05/13/24 10:36 11:44 Temperature 98.0 F 98.0 F Pulse Rate 79 75 Respiratory 18 18 Rate Blood Pressure 169/103 162/90 O2 Sat by Pulse 99 99 Oximetry Medical Decision Making - Medical Decision Making Was pt. sent in by a medical professional or institution (VALENTINA Gannon, GEOPHYSICAL SUPPORT SPECIALIST, urgent care, hospital, or intermediate...) When possible be specific @ -No Did you speak to anyone other than the patient for history (EMS, parent, family, police, friend...)? What history was obtained from this source @ -No Did you review nursing and triage notes (agree or disagree)? Why? @ -I reviewed and agree with nursing and triage notes Were old charts reviewed (outside hosp., previous admission, EMS record, old EKG, old radiological studies, urgent care reports/EKG's, intermediate records)? Report findings @ -No old charts were reviewed Differential Diagnosis (chest pain, altered mental status, abdominal pain women, abdominal pain men, vaginal bleeding, weakness, fever, dyspnea, syncope, headache, dizziness, GI bleed, back pain, seizure, CVA, palpatations, mental health, musculoskeletal)? @ -Leg fracture, knee effusion, ligamentous injury, knee contusion EKG interpreted by me (3pts min.). @ -None X-rays interpreted by me (1pt min.). @ -[X-ray very right knee showing tricompartmental degenerative changes, small effusion CT interpreted by me (1pt min.). @ -None done U/S interpreted by me (1pt. min.). @ -None done What testing was considered but not performed or refused? (CT, X-rays, U/S, labs)? Why? @ -None What meds were considered but not given or refused? Why? @ -None Did you discuss the management of the patient with other professionals (professionals i.e. VALENTINA Gannon, GEOPHYSICAL SUPPORT SPECIALIST, lab, RT, psych nurse, social work case manager, maintainer plant, teacher, commercial loan collection officer, social work case manager)? Give summary @ -No Was smoking cessation discussed for >3mins.? @ -No Was critical care preformed (if so, how long)? @ -No Were there social determinants of health that impacted care today? How? (Homelessness, low income, unemployed, alcoholism, drug addiction, transportation, low edu. Level, literacy, decrease access to med. care, [facility], rehab)? @ -No Was there de-escalation of care discussed even if they declined (Discuss DNR or withdrawal of care, Hospice)? DNR status @ -No What co-morbidities impacted this encounter? (DM, HTN, Smoking, COPD, CAD, Cancer, CVA, ARF, Chemo, Hep., AIDS, mental health diagnosis, sleep apnea, morbid obesity)? @ -None Was patient admitted / discharged? Hospital course, mention meds given and route, prescriptions, significant lab abnormalities, going to OR and other pertinent info. @ -[# Patient request knee immobilizer for comfort, patient will take ibuprofen will follow-up with orthopedics return parens discussed. Undiagnosed new problem with uncertain prognosis? @ -No Drug Therapy requiring intensive monitoring for toxicity (Heparin, Nitro, Insulin, Cardizem)? @ -No Were any procedures done? @ -No Diagnosis/symptom? @ -Right knee effusion, right knee pain Acute, or Chronic, or Acute on Chronic? @ -Acute Uncomplicated (without systemic symptoms) or Complicated (systemic symptoms)? @ -Uncomplicated Side effects of treatment? @ -No Exacerbation, Progression, or Severe Exacerbation? @ -No Poses a threat to life or bodily function? How? (Chest pain, [place], [place], pneumonia, PE, COPD, DKA, ARF, appy, cholecystitis, CVA, Diverticulitis, Homicidal, Suicidal, threat to staff... and all critical care pts) @ -No Disposition Clinical Impression: Knee pain, right, Knee effusion, right Disposition: HOME SELF-CARE Condition: Stable Instructions (If sedation given, give patient instructions): Knee Pain (ED) Additional Instructions: Please return to the Emergency Department if symptoms worsen or any other concerns. Is patient prescribed a controlled substance at d/c from ED?: No Referrals: None,Stated [Primary Care Provider] - 1-2 days Neno Rangel MD [Medical Doctor] - 1-2 days Time of Disposition: 11:38
--- NOTE | 2024-05-13 11:30 | XR ---
EXAMINATION TYPE: XR knee complete RT DATE OF EXAM: 05/13/2024 COMPARISON: NONE CLINICAL INDICATION: Male, 59 years old with history of pain; TECHNIQUE: Three views are submitted. FINDINGS: Chondrocalcinosis with mild tricompartment joint space narrowing and marginal spurring. Large supra p atellar bursa fluid collection. Mild generalized demineralization Osseous structures are intact. No acute fracture seen. IMPRESSION: 1. No acute fracture or dislocation. 2. Mild tricompartment with chondrocalcinosis. Osteoarthritis and deposition arthropathy in the diffe rential diagnosis. However, there is a large suprapatellar bursal fluid collection which can occasion ally be associated with internal derangement of the knee. [facility], , 05/13/2024 11:27 AM
[2024-05-13 11:47] VITALS: BP 162/90; PULSE 75
== END 2024-05-13 11:47 | disposition home or self-care (01) ==
LOC: EC 10:34
DX: M25.561 Pain in right knee (principal); F17.200 Nicotine dependence, unspecified, uncomplicated; W22.09XA Striking against other stationary object, initial encounter
CPT/HCPCS: 99283 ×2; 96372 ×2; 73562; J1885

== ENCOUNTER 2024-12-25 16:54 | Emergency (ER) | payer OTHER ==
--- NOTE | 2024-12-25 17:40 | ED ---
Back Pain HPI - General Chief Complaint: Back Pain/Injury Stated Complaint: right hip and right lower back pain Time Seen by Provider: 12/25/24 17:37 Source: patient, RN notes reviewed Limitations: no limitations - History of Present Illness Initial Comments: 59-year-old male presenting for right-sided lower back pain x 1 day. 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 States he woke up in the middle of the night last night to go to the bathroom and noticed pain in the lower back. Pain does not radiate. States it only is painful with movement and with ambulation. Denies urinary symptoms, fevers, chills, nausea, vomiting. No saddle anesthesia. No bowel or bladder incontinence. - Related Data Home Medications Medication Instructions Recorded Confirmed Ibuprofen [Motrin] 800 mg PO DAILY PRN 01/22/20 01/22/20 Previous Rx's Medication Instructions Recorded Hydrocortisone/Pramoxine 0 applic RECTAL BID #30 bottle 10/21/19 [Proctofoam-Hc 1%-1% Foam] Docusate [Colace] 100 mg PO BID #20 capsule 01/29/20 HYDROcodone/APAP 5-325MG [[place] 1 tab PO Q6HR PRN #10 tab 01/29/20 5-325] Betamethasone Dipropionate 1 applic TOPICAL BID #15 gm 01/14/23 [Betamethasone Dipropionate 0.05%] diphenhydrAMINE [Benadryl] 50 mg PO QID PRN #30 capsule 01/14/23 Cyclobenzaprine [Flexeril] 10 mg PO TID PRN #15 tab 12/25/24 Lidocaine 4% Patch 1 patch TOPICAL DAILY PRN 7 Days 12/25/24 #7 patch Naproxen 500 mg PO Q12H PRN #30 tab 12/25/24 Allergies Allergy/AdvReac Type Severity Reaction Status Date / Time No Known Allergies Allergy Verified 05/13/24 10:40 Review of Systems ROS Statement: Those systems with pertinent positive or pertinent negative responses have been documented in the HPI. ROS Other: All systems not noted in ROS Statement are negative. Past Medical History Past Medical History: Hyperlipidemia, Hypertension, Osteoarthritis (OA) Additional Past Medical History / Comment(s): cellulitis - Rt knee, recent chest pain. left heart catheterization that was negative for coronary artery disease, abdominal pain possible gastritis possible pancreatitis, chronic alcohol use and dependence, chronic tobacco use and dependence History of Any Multi-Drug Resistant Organisms: MRSA Date of last positivie culture/infection: 2004 MDRO Source:: lt foot Past Surgical History: Orthopedic Surgery Additional Past Surgical History / Comment(s): re-attach thumb, right knee incision and drainage of a staph infection. skin grafts rt knee Past Anesthesia/Blood Transfusion Reactions: No Reported Reaction Past Psychological History: Depression Smoking Status: Current every day smoker Past Alcohol Use History: None Reported Past Drug Use History: Marijuana - Past Family History Mother Family Medical History: Rheumatoid Arthritis (RA) Father Family Medical History: Unable to Obtain Brother(s) Family Medical History: No Reported History Sister(s) Family Medical History: No Reported History Son(s) Family Medical History: No Reported History Daughter(s) Family Medical History: No Reported History General Exam Limitations: no limitations General appearance: alert, in no apparent distress Head exam: Present: atraumatic, normocephalic, normal inspection Eye exam: Present: normal appearance, PERRL, EOMI. Absent: scleral icterus, conjunctival injection, periorbital swelling Back exam: Present: normal inspection, full ROM, other (Full strength and range of motion of bilateral lower extremities, no saddle anesthesia, full sensation and DP pulses bilaterally). Absent: tenderness, CVA tenderness (R), CVA tenderness (L), muscle spasm, paraspinal tenderness, vertebral tenderness, rash noted Neurological exam: Present: alert, oriented X3 Psychiatric exam: Present: normal affect, normal mood Skin exam: Present: warm, dry, intact, normal color. Absent: rash Course Vital Signs 12/25/24 17:12 Temperature 98 F Pulse Rate 68 Respiratory 16 Rate Blood Pressure 145/89 O2 Sat by Pulse 98 Oximetry Medical Decision Making - Medical Decision Making Was pt. sent in by a medical professional or institution (, PA, TANK CAR LOADER, urgent care, hospital, or group home...) When possible be specific @ -No Did you speak to anyone other than the patient for history (EMS, parent, family, police, friend...)? What history was obtained from this source @ -No Did you review nursing and triage notes (agree or disagree)? Why? @ -I reviewed and agree with nursing and triage notes Were old charts reviewed (outside hosp., previous admission, EMS record, old EKG, old radiological studies, urgent care reports/EKG's, group home records)? Report findings @ -No old charts were reviewed Differential Diagnosis (chest pain, altered mental status, abdominal pain women, abdominal pain men, vaginal bleeding, weakness, fever, dyspnea, syncope, headache, dizziness, GI bleed, back pain, seizure, CVA, palpatations, mental health, musculoskeletal)? @ -Differential Back Pain: Strain, zoster, cauda equina syndrome, epidural abscess, vertebral osteomyelitis, discitis, fracture, subluxation, disc herniation, DJD, spinal stenosis, dissection, AAA, pancreatitis, peptic ulcer disease, pyelonephritis, kidney stone, this is not meant to be an all-inclusive list. EKG interpreted by me (3pts min.). @ -None X-rays interpreted by me (1pt min.). @ -None done CT interpreted by me (1pt min.). @ -None done U/S interpreted by me (1pt. min.). @ -None done What testing was considered but not performed or refused? (CT, X-rays, U/S, labs)? Why? @ -Offered low back x-ray however patient declined, I believe this is reasonable as there is no point tenderness or red flag symptoms, no direct fall or injury What meds were considered but not given or refused? Why? @ -None Did you discuss the management of the patient with other professionals (professionals i.e. , PA, TANK CAR LOADER, lab, RT, psych nurse, social science analyst, design inserter, teacher, restoration officer, protective services case worker)? Give summary @ -No Was smoking cessation discussed for >3mins.? @ -No Was critical care preformed (if so, how long)? @ -No Were there social determinants of health that impacted care today? How? (Homelessness, low income, unemployed, alcoholism, drug addiction, transportation, low edu. Level, literacy, decrease access to med. care, alf, rehab)? @ -No Was there de-escalation of care discussed even if they declined (Discuss DNR or withdrawal of care, Hospice)? DNR status @ -No What co-morbidities impacted this encounter? (DM, HTN, Smoking, COPD, CAD, Cancer, CVA, ARF, Chemo, Hep., AIDS, mental health diagnosis, sleep apnea, morbid obesity)? @ -None Was patient admitted / discharged? Hospital course, mention meds given and route, prescriptions, significant lab abnormalities, going to OR and other pertinent info. @ -Discharge. 59-year-old male presenting for right sided lower back pain x 1 day. No direct trauma. No red flag symptoms. Neurovascularly intact of the bilateral lower extremities. Provided with IM Toradol, IM Solu-Medrol, and lidocaine patch. Patient can be safely discharged home with appropriate return precautions and supportive care. Case was discussed with my ED attending Dr. Ramirez. Undiagnosed new problem with uncertain prognosis? @ -No Drug Therapy requiring intensive monitoring for toxicity (Heparin, Nitro, Insulin, Cardizem)? @ -No Were any procedures done? @ -No Diagnosis/symptom? @ -Low back strain Acute, or Chronic, or Acute on Chronic? @ -Acute Uncomplicated (without systemic symptoms) or Complicated (systemic symptoms)? @ -Uncomplicated Side effects of treatment? @ -No Exacerbation, Progression, or Severe Exacerbation? @ -No Poses a threat to life or bodily function? How? (Chest pain, [place], [place], pneumonia, PE, COPD, DKA, ARF, appy, cholecystitis, CVA, Diverticulitis, Homicidal, Suicidal, threat to staff... and all critical care pts) @ -No Disposition Clinical Impression: Low back strain Disposition: HOME SELF-CARE Condition: Stable Instructions (If sedation given, give patient instructions): Acute Low Back Pain (ED) Additional Instructions: Take naproxen, Flexeril, and use lidocaine patches as needed for back pain. Please return to the Emergency Department if symptoms worsen or any other concerns. Prescriptions: Cyclobenzaprine [Flexeril] 10 mg PO TID PRN #15 tab PRN Reason: Muscle Spasm Lidocaine 4% Patch 1 patch TOPICAL DAILY PRN 7 Days #7 patch PRN Reason: Pain Naproxen 500 mg PO Q12H PRN #30 tab PRN Reason: Pain Is patient prescribed a controlled substance at d/c from ED?: No Referrals: None,Stated [Primary Care Provider] - 1-2 days Time of Disposition: 17:40
[2024-12-25] MEDS: methylPREDNISolone SOD SUCCI 125 MG/2 ML VIAL IM ONE (17:58)
[2024-12-25] MEDS: LIDOCAINE 4% PATCH TOPICAL ONE (17:59)
[2024-12-25] MEDS: KETOROLAC 15 MG/ML 1 ML VIAL IM STA (18:07)
[2024-12-25] MEDS: KETOROLAC 15 MG/ML 1 ML VIAL IVP STA (18:08)
[2024-12-25 18:11] VITALS: BP 146/88; PULSE 76; RESP 20; TEMP 97.9
== END 2024-12-25 18:23 | disposition home or self-care (01) ==
LOC: EC 16:54
DX: S39.012A Strain of muscle, fascia and tendon of lower back, initial encounter (principal); F17.200 Nicotine dependence, unspecified, uncomplicated; X50.9XXA Other and unspecified overexertion or strenuous movements or postures, initial encounter; Y99.0 Civilian activity done for income or pay
CPT/HCPCS: 99283; 96372 ×2; J1885; J2919